=== PATIENT | male | born 2000 | race Caucasian/White ===

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

== ENCOUNTER → 2024-07-27 | Outpatient (CLI) | payer OTHER ==
[~2024-07-27] MED LIST changes: +Pepto-Bismol262 M1 PO; +Pyridium100 MG PO; +SULFAMETHOXAZO1 EAC1 PO
== END | disposition home or self-care (01) ==
LOC: LAB SHORT 16:09 → LAB 16:09
DX: R35.0 Frequency of micturition (principal)
CPT/HCPCS: 87086

== ENCOUNTER → 2024-07-28 | Outpatient (CLI) | payer OTHER ==
[2024-07-28 12:47] LABS: BASOPHILS ABSOLUTE AUTO 0.02 K/mm3 (0.00-0.23); BASOPHILS PERCENT AUTO 0 % (0-2); EOSINOPHILS ABSOLUTE AUTO 0.09 K/mm3 (0.00-0.68); EOSINOPHILS PERCENT AUTO 1 % (0-6); Hematocrit 47.9 % (37.0-53.0); Hemoglobin 16.6 g/dL (13.5-17.5); IMMATURE GRAN ABSOLUTE AUTO 0.04 K/mm3 (0.00-0.10); IMMATURE GRAN PERCENT AUTO 1 % (0-1); LYMPHOCYTES PERCENT AUTO 37 % (21-46); MONOCYTES ABSOLUTE AUTO 0.44 K/mm3 (0.16-1.47); MONOCYTES PERCENT AUTO 7 % (4-13); Mean Corpuscular HGB 29.1 pg (26.0-34.0); Mean Corpuscular HGB Conc 34.7 g/dL (31.5-36.5); Mean Corpuscular Volume 84 fL (80-100); Mean Platelet Volume 10.5 fL (9.1-12.4); NEUTROPHILS ABSOLUTE AUTO 3.62 K/mm3 (1.96-9.15); NEUTROPHILS PERCENT AUTO 54 % (41-73); Platelet Count 227 K/mm3 (150-400); RDW Coefficient Variation 12.2 % (11.7-14.2); RDW Standard Deviation 36.9 fL (35.1-46.3); Red Blood Cell Count 5.71 M/mm3 (4.30-5.90); White Blood Cell Count 6.71 K/mm3 (4.00-11.30)
[2024-07-28 12:57] LABS: Albumin, Blood 4.9 g/dL (3.4-5.0); Albumin/Globulin Ratio 1.6 (0.8-1.8); Bilirubin, Total 0.6 mg/dL (0.1-1.0); Bun/Creatinine Ratio 10.9 (12.0-20.0); Calcium, Blood 9.5 mg/dL (8.5-10.1); Creatinine, Blood 1.19 mg/dL (0.60-1.20); Potassium, Blood 3.5 mmol/L (3.5-5.5); Total Protein, Blood 7.9 g/dL (6.4-8.2)
== END | disposition home or self-care (01) ==
LOC: LAB 12:42 → LAB SHORT 12:42
PROVIDERS: Chiropractor
DX: R35.0 Frequency of micturition (principal)
CPT/HCPCS: 80053; 83036; 85025

== ENCOUNTER 2024-07-31 20:37 | Emergency (ER) | payer OTHER ==
[~2024-07-31] VITALS: Ht 177.8 cm; Wt 73.5 kg
[~2024-07-31 20:37] MED LIST changes: -Pepto-Bismol262 M1 PO; -Pyridium100 MG PO; -SULFAMETHOXAZO1 EAC1 PO
[2024-07-31 20:55] LABS: Source, Urine Clean Catch
[2024-07-31 21:01] LABS: Appearance, Urine Clear (Clear); Bilirubin, Urine Neg (Neg); Blood, Urine 1+ (Neg); Color, Urine Yellow (P-Yellow); Glucose Qualitative, Urine Neg (Neg); Ketones, Urine 3+ (Neg); Leukocyte Esterase, Urine Neg (Neg); Nitrite, Urine Neg (Neg); Protein, Urine 2+ (Neg); Specific Gravity, Urine 1.025 (1.003-1.022); Urobilinogen, Urine 1+ (Normal)
[2024-07-31 21:12] LABS: Bacteria Rare /hpf; Hyaline Casts 0-2 /lpf (0-2); Squamous Epithelial Cells Rare /hpf (Few)
[2024-07-31] MEDS ORDERED: SULFAMETHOXAZO1 EAC1 PO (21:52)
[2024-07-31] MEDS ORDERED: Phenazopyridine HCl 100 MG Tab PO ONE (22:00)
[2024-07-31 22:33] LABS: BASOPHILS ABSOLUTE AUTO 0.03 K/mm3 (0.00-0.23); BASOPHILS PERCENT AUTO 0 % (0-2); EOSINOPHILS PERCENT AUTO 0 % (0-6); Hemoglobin 16.8 g/dL (13.5-17.5); IMMATURE GRAN ABSOLUTE AUTO 0.02 K/mm3 (0.00-0.10); IMMATURE GRAN PERCENT AUTO 0 % (0-1); LYMPHOCYTES ABSOLUTE AUTO 1.84 K/mm3 (0.84-5.20); LYMPHOCYTES PERCENT AUTO 20 % (21-46); MONOCYTES ABSOLUTE AUTO 0.53 K/mm3 (0.16-1.47); MONOCYTES PERCENT AUTO 6 % (4-13); Mean Corpuscular HGB 28.7 pg (26.0-34.0); Mean Corpuscular Volume 82 fL (80-100); Mean Platelet Volume 9.9 fL (9.1-12.4); NEUTROPHILS ABSOLUTE AUTO 6.63 K/mm3 (1.96-9.15); NEUTROPHILS PERCENT AUTO 73 % (41-73); Platelet Count 251 K/mm3 (150-400); RDW Coefficient Variation 11.9 % (11.7-14.2); RDW Standard Deviation 35.3 fL (35.1-46.3); Red Blood Cell Count 5.85 M/mm3 (4.30-5.90); White Blood Cell Count 9.05 K/mm3 (4.00-11.30)
[2024-07-31 23:00] LABS: Albumin/Globulin Ratio 1.7 (0.8-1.8); Bilirubin, Total 0.8 mg/dL (0.1-1.0); Bun/Creatinine Ratio 12.7 (12.0-20.0); Calcium, Blood 9.9 mg/dL (8.5-10.1); Creatinine, Blood 0.94 mg/dL (0.60-1.20); Potassium, Blood 3.5 mmol/L (3.5-5.5)
[2024-08-01] MEDS ORDERED: Pyridium100 MG PO (00:38)
[2024-08-01 00:45] VITALS: BP 150/92
[2024-08-02] MEDS ORDERED: Pepto-Bismol262 M1 PO (21:42)
== END 2024-08-01 00:45 | disposition home or self-care (01) ==
LOC: ER 20:37
PROVIDERS: Physician Assistant; Student in an Organized Health Care Education/Training Program
DX: R35.0 Frequency of micturition (principal); R39.15 Urgency of urination; Z79.2 Long term (current) use of antibiotics; Z87.442 Personal history of urinary calculi
CPT/HCPCS: 74176; 80053; 81001; 85025; 99284-25; A9270

== ENCOUNTER 2024-08-02 18:51 | Observation (INO) | payer OTHER ==
[~2024-08-02] VITALS: Ht 177.8 cm; Wt 72.6 kg
[~2024-08-02 18:51] MED LIST changes: +Pyridium100 MG PO; +SULFAMETHOXAZO1 EAC1 PO
[2024-08-02 20:19] LABS: BASOPHILS ABSOLUTE AUTO 0.04 K/mm3 (0.00-0.23); BASOPHILS PERCENT AUTO 0 % (0-2); EOSINOPHILS ABSOLUTE AUTO 0.01 K/mm3 (0.00-0.68); EOSINOPHILS PERCENT AUTO 0 % (0-6); Hematocrit 49.4 % (37.0-53.0); Hemoglobin 17.8 g/dL (13.5-17.5); IMMATURE GRAN ABSOLUTE AUTO 0.04 K/mm3 (0.00-0.10); IMMATURE GRAN PERCENT AUTO 0 % (0-1); LYMPHOCYTES ABSOLUTE AUTO 1.36 K/mm3 (0.84-5.20); LYMPHOCYTES PERCENT AUTO 15 % (21-46); MONOCYTES ABSOLUTE AUTO 0.62 K/mm3 (0.16-1.47); MONOCYTES PERCENT AUTO 7 % (4-13); Mean Corpuscular HGB 29.1 pg (26.0-34.0); Mean Corpuscular Volume 81 fL (80-100); Mean Platelet Volume 10.6 fL (9.1-12.4); NEUTROPHILS ABSOLUTE AUTO 6.92 K/mm3 (1.96-9.15); NEUTROPHILS PERCENT AUTO 77 % (41-73); Platelet Count 225 K/mm3 (150-400); RDW Coefficient Variation 11.9 % (11.7-14.2); RDW Standard Deviation 34.1 fL (35.1-46.3); Red Blood Cell Count 6.11 M/mm3 (4.30-5.90); White Blood Cell Count 8.99 K/mm3 (4.00-11.30)
[2024-08-02 21:01] LABS: Albumin, Blood 5.4 g/dL (3.4-5.0); Albumin/Globulin Ratio 1.7 (0.8-1.8); Bilirubin, Total 1.6 mg/dL (0.1-1.0); Bun/Creatinine Ratio 18.2 (12.0-20.0); Calcium, Blood 9.7 mg/dL (8.5-10.1); Creatinine, Blood 0.88 mg/dL (0.60-1.20); Globulin, Blood 3.1 g/dL (2.2-4.0); Potassium, Blood 3.6 mmol/L (3.5-5.5); Total Protein, Blood 8.5 g/dL (6.4-8.2)
[2024-08-02] MEDS ORDERED: Pepto-Bismol262 M1 PO (21:42)
[2024-08-02 22:00] VITALS: BP 135/73
[2024-08-02] MEDS ORDERED: Ketorolac Tromethamine 30mg Vial IV ONE (22:00)
[2024-08-02] MEDS ORDERED: Droperidol 5 mg/2 ml Vial IV ONE (22:15)
[2024-08-02] MEDS ORDERED: NS 1,000 ML IV SCH ×2 (22:20→23:50)
[2024-08-02] MEDS ORDERED: DiphenhydrAMINE HCl 50 MG/ML 1ML Vial IV ONE (23:10)
[2024-08-02] MEDS ORDERED: Morphine Sulfate 4 MG/1 ML Injection IV ONE (23:45)
[2024-08-02] MEDS ORDERED: Piperacillin/Tazobactam Sod 3.375 GM in NS 100 ML IV ONE (23:45)
[2024-08-02] MEDS ORDERED: Ketorolac Tromethamine 30mg Vial IV PRN (23:50)
[2024-08-02] MEDS ORDERED: Morphine Sulfate 4 MG/1 ML Injection IV PRN (23:50)
[2024-08-03] VITALS (23 sets, daily range): BP systolic 108–151; BP diastolic 53–118
[2024-08-03] MEDS ORDERED: Lactated Ringer's 1,000 ML IV SCH ×2 (12:15→15:30)
[2024-08-03] MEDS ORDERED: CeFAZolin Sodium 2,000 MG in NS 100 ML IV PRN (12:40)
--- NOTE | 2024-08-03 12:46 | NUR ---
PT HAS 20G IV IN LFA THAT SHOWS NO SIGNS OF INFILTRATION, FLOWS WELL TO GRAVITY
[2024-08-03] MEDS ORDERED: Bupivacaine 0.5% HCl 5 MG/ML 30MLVIAL ONE (13:20)
[2024-08-03] MEDS ORDERED: FentaNYL Citrate 50 MCG/ML 2 ML Injection IV ONE (13:25)
[2024-08-03] MEDS ORDERED: Midazolam HCl 1MG / ML 2ML Vial IV ONE (13:25)
[2024-08-03] MEDS ORDERED: propofoL 20 ML IV ONE (14:06)
[2024-08-03] MEDS ORDERED: FentaNYL Citrate 50 MCG/ML 2 ML Injection ONE (14:06)
[2024-08-03] MEDS ORDERED: Ondansetron HCl 2 MG / ML 2ML Vial ONE (14:14)
[2024-08-03] MEDS ORDERED: Rocuronium Bromide 10 MG/ML 5ML Injection IV ONE (14:14)
[2024-08-03] MEDS ORDERED: Dexamethasone Sod Phos 10 MG/ML 1ML VIAL ONE (14:14)
[2024-08-03] MEDS ORDERED: Labetalol HCL 5 MG/ML 4ML Injection (Single Dose) ONE (14:17)
[2024-08-03] MEDS ORDERED: Ketorolac Tromethamine 30mg Vial ONE (14:48)
[2024-08-03] MEDS ORDERED: Sugammadex Sodium 200 MG/2ML SDV (100 MG/ML) ONE (14:48)
[2024-08-03] MEDS ORDERED: HYDROcodone 5-APAP 325 TAB PO PRN (15:25)
[2024-08-03] MEDS ORDERED: FentaNYL Citrate 50 MCG/ML 2 ML Injection IV PRN (15:25)
[2024-08-03] MEDS ORDERED: FLU VACC TS2024-25(6MOS UP)/PF 45 MCG/0.5 ML SYRINGE IM SCH (15:30)
[2024-08-03] MEDS ORDERED: Ketorolac Tromethamine 30mg Vial IV PRN (15:35)
[2024-08-03] MEDS ORDERED: HYDROmorphone HCl/Pf 1MG SYR ONE ×2 (15:48→16:07)
--- NOTE | 2024-08-03 17:12 | NUR ---
POST OP S/P LAP ANABEL. X4 LAP SITES TO ABD WITH STERI STRIPS ARE CDI. PT REPORTED 6/10 PAIN AND RECENTLY MEDICATED IN PACU. PT WAS ABLE TO STAND FROM GURNEY TO BED. DENIES N/V. TOLERATING SIPS OF WATER AND A JELLO. GIVEN NORCO FOR PAIN MANAGEMENT. POST OP VSS AND IN PROGRESS. EDUCATED ON POST OP TREATMENT PLAN AND ORIENTED TO ROOM AND CALL LIGHT. FAMILY AT BEDSIDE FOR SUPPORT.
--- NOTE | 2024-08-03 17:46 | NUR ---
TOLERATING REG DIET WITHOUT N/V. NORCO GIVEN FOR PAIN CONTROL. POST OP VITALS STILL IN PROGRESS AND STABLE. FAMILY AT BEDSIDE. CALL LIGHT WITHIN REACH.
--- NOTE | 2024-08-04 03:45 | NUR ---
SHIFT SUMMARY PT POD 0 LAP ANABEL. INTERMITTENT ABD PAIN RELEIVED WITH MEDS PER ORDERS. PT HAS BEEN INDEPEDNENT IN THE ROOM. VOIDING, AMBULATING AND TOLERATING PO INTAKE. SURGICAL SITE WNL. DRESSINGS C/D/I. VITALS STABLE. BED IN LOWEST POSITION, CALL LIGHT WITHIN REACH.
[2024-08-04 05:42] VITALS: BP 147/57
[2024-08-04 07:31] VITALS: BP 147/59
[2024-08-04] MEDS ORDERED: PHENA200 PO (13:03)
[2024-08-04] MEDS ORDERED: HYDR1TAB94 PO (13:04)
--- NOTE | 2024-08-04 13:32 | NUR ---
DISCHARGE NOTE PT IND IN ROOM, VOIDING, TOLERATING REG DIET. PAIN MANEAGABLE W/ PAIN MEDS PER EMAR. VSS. SCRIPTS GIVEN TO PT. DRESSINGS C/D/I. PT DC'D TO PRIVATE RIDE HOME W/ BELONGINGS VIA WC.
== END 2024-08-04 13:30 | disposition home or self-care (01) ==
LOC: ER 18:51 → ERHOLD 18:52 → SURS 18:52 → ERHOLD 18:52 → SURS 08-03 15:54
PROVIDERS: Physician Assistant; ADMIT Surgery
DX: K80.10 Calculus of gallbladder with chronic cholecystitis without obstruction (principal); Z79.899 Other long term (current) drug therapy
CPT/HCPCS: 51798; 74177; 76705; 80053; 83690; 85025; 88304; 96361; 96365; 96375; 96376; 99285-25; A9270; G0378; J0690; J1100; J1171; J1200; J1790; J1885; J2250; J2405; J2543; J2704; J3010; J7030; J7120; Q9967

== ENCOUNTER 2025-02-12 19:32 | Emergency (ER) | payer OTHER ==
[~2025-02-12] VITALS: Ht 172.7 cm; Wt 83.9 kg
[~2025-02-12 19:32] MED LIST changes: +HYDR1TAB94 PO; +PHENA200 PO; +Pepto-Bismol262 M1 PO
[2025-02-12] MEDS ORDERED: Ondansetron HCl 2 MG / ML 2ML Vial IV ONE (20:30)
[2025-02-12] MEDS ORDERED: RX Prepack 2 Tabs Ondansetron ODT 4MG UD ONE (21:25)
[2025-02-12] MEDS ORDERED: ONDA4ODT MM (21:26)
[2025-02-12] MEDS ORDERED: IBUP600 PO (21:26)
[2025-02-12 21:44] VITALS: BP 130/73
== END 2025-02-12 21:48 | disposition home or self-care (01) ==
LOC: ER 19:32
DX: S06.0XAA Concussion with loss of consciousness status unknown, initial encounter (principal); F17.290 Nicotine dependence, other tobacco product, uncomplicated; Z79.899 Other long term (current) drug therapy; W31.89XA Contact with other specified machinery, initial encounter
CPT/HCPCS: 70450; 96374; 99283-25; A9270; J2405